=== PATIENT | female | born 1975 | race Caucasian/White ===

== ENCOUNTER 2023-03-04 10:55 | Day surgery (SDC) | payer OTHER, BC, SELFPAY ==
[2023-03-04] VITALS (8 sets, daily range): BP systolic 98–110; BP diastolic 62–82; PULSE 60–73; RESP 16; TEMP 36.3–36.7; O2SAT 97–100; BMI 23.1
[2023-03-04] MEDS: SODIUM CHLORIDE 0.9 % (FLUSH) 10 ML SYRINGE IVF (11:20)
[2023-03-04] MEDS: LACTATED RINGERS 1000 ML 1,000 ML 100 ML IV (11:20)
[2023-03-04] MEDS: fentaNYL 100 MCG/2 ML inj IVP (11:44)
[2023-03-04] MEDS: MIDAZOLAM HCL 1 MG/ML inj IVP (11:44)
--- NOTE | 2023-03-04 11:44 | SUR.PREOP ---
TIME?OUT:?1143 PT/RN/MDA?VERIFICATION?OF?SURGICAL?SITE,?PROCEDURE,?AND?CONSENT OBTAINED?PRIOR?TO?INVASIVE?PROCEDURE.
[2023-03-04] MEDS: CEFAZOLIN 2 GM INJ IVP (12:10)
--- NOTE | 2023-03-04 12:15 | CRLHL7_ITS ---
For Patients: As a result of the Cures Act, medical imaging exams and procedure reports are released immediately into your electronic medical record. You may view this report before your referring provider. If you have questions, please contact your health care provider. Indication: Right MPJ Fusion, Hammertoe Correction, Tailor`s bunion Technique: Five fluoroscopic images of the right forefoot. Fluoroscopic time 19.1 seconds. IMPRESSION: Fluoroscopic guidance for fusion across the 1st MTP joint, distal 5th metatarsal osteotomy and hammertoe correction of the 2nd and 3rd toes. Dictated by Shiv Walker MD @ 03/04/2023 2:44:05 PM (Electronically Signed)
--- NOTE | 2023-03-04 12:26 | W.ANESCHARGE ---
Anesthesia Charges Start Date/Time Anesthesia Start Date: 03/04/23 Anesthesia Start Time: 12:00 Stop Date/Time Anesthesia Stop Date: 03/04/23 Anesthesia Stop Time: 14:49
--- NOTE | 2023-03-04 12:26 | W.PM.NB ---
Nerve Block Nerve Block Time Seen by Provider: 11:48 Date Seen: 03/04/23 Type of block requested by surgeon for post-operative analgesia: popliteal Side: right Time out performed: Yes Verification of patient name: Yes Verification of date of : Yes Site marking: site marked Name of person performing procedure: Jose A Continuous monitoring Was continuous monitoring of O2 sat, B/P, color television console monitor, recorded every 15 minutes?: Yes Procedure Checklist: sterile prep, needles and gloves Ultrasound guided. Images saved: Yes Medications given in 5ml increments after negative aspiration: Ropivicaine %: 0.5 mL: 20 Needle gauge: 22 Patient tolerated procedure well: Yes Additional comments: Needle noted adjacent to nerve Block Charges Block Charge (with Pro Fee): Sciatic Nerve Use of Ultrasound Machine for Block: Yes- US Guidance/pain block
--- NOTE | 2023-03-04 12:27 | W.PM.NB ---
Nerve Block Nerve Block Time Seen by Provider: 11:48 Date Seen: 03/04/23 Type of block requested by surgeon for post-operative analgesia: adductor canal Side: right Time out performed: Yes Verification of patient name: Yes Verification of date of : Yes Site marking: site marked Name of person performing procedure: Jose A Continuous monitoring Was continuous monitoring of O2 sat, B/P, monitor and storage bin tender, recorded every 15 minutes?: Yes Procedure Checklist: sterile prep, needles and gloves Ultrasound guided. Images saved: Yes Medications given in 5ml increments after negative aspiration: Ropivicaine %: 0.5 mL: 20 Needle gauge: 20 Decadron (mg): 10 Precedex (mcg): 25 Patient tolerated procedure well: Yes Additional comments: Needle noted adjacent to nerve Block Charges Block Charge (with Pro Fee): Femoral Nerve Use of Ultrasound Machine for Block: Yes- US Guidance/pain block
--- NOTE | 2023-03-04 14:49 | W.ANESCHARGE ---
Anesthesia Charges Start Date/Time Anesthesia Start Date: 03/04/23 Anesthesia Start Time: 12:00 Stop Date/Time Anesthesia Stop Date: 03/04/23 Anesthesia Stop Time: 14:49
--- NOTE | 2023-03-04 14:52 | P.PCN_ITS ---
Procedure Note Date Seen: 03/04/23 Date of procedure: 03/04/23 Will [facility] bill your pro fee for this procedure?: No Procedure Description: Operative note Staff surgeon: Enoc Artis DPM Preoperative diagnosis: 1. Hallux rigidus right 2. Tailor's bunion right 3. Hammertoe 2nd digit 4. Hammertoe 3rd digit 5. Hammertoe 4th digit 6. Hammertoe 5th digit Postoperative diagnosis: 1. Hallux rigidus right 2. Tailor's bunion right 3. Hammertoe 2nd digit 4. Hammertoe 3rd digit 5. Hammertoe 4th digit 6. Hammertoe 5th digit Procedure: 1. First MPJ fusion right 2. Tailor's bunion correction by osteotomy right 3. Hammertoe repair 2nd digit right 4. Hammertoe repair 3rd digit right 5. Flexor tenotomy 4th digit right 6. Flexor tenotomy 5th digit Anesthesia: Mac with popliteal and adductor block Hemostasis: Ankle tourniquet 250 mm Hg Estimated blood loss: 10 mL Materials: Arthrex max Force 1st MPJ fusion plate x1, 3.0 locking screws x5 and 3.0 nonlocking screw x1, 2.4 mm cannulated screws x2, 0.054 smooth K-wires x2. Complications: None apparent Indication for surgery: Patient seen in clinic for ongoing pain. She has elected to have surgical correction. I reviewed procedure, recovery, expecta tions and potential complications. These include but not limited to: Poor wound healing, infection, under correction, over correction, nonunion, delayed union malunion, potential need for future surgery, deep venous thrombosis, pulmonary embolism, possible . She understands risks written consent was obtained. Procedure: Patient from the operating room placed supine position on operating table the time she was placed under MAC anesthesia. She was prepped and draped in sterile fashion. Standard time-out protocol followed. She had a preoperative popliteal adductor block by Anesthesia. Right foot was exsanguinated the tourniquet inflated. Dorsal linear incision was made over the 1st metatarsophalangeal joint. Incision was carried down through skin and subcutaneous tissues. Linear capsule incision was made the capsular tissue reflected away from the head of the 1st metatarsal in the proximal phalangeal base. Cartilage was completely eroded from both metatarsal head and the proximal phalangeal base. Guide pin was placed in 1st metatarsal head and a 20 mm Reamer was used to remove the remaining cartilage and subchondral bone. Guide pin was removed and placed in the base of proximal phalanx the corresponding 20 mm Reamer was used to remove remaining cartilage and subchondral bone. Wound was irrigated normal sterile saline. The opposing fusion surfaces were fenestrated with a K-wire. There was a small defect in the head of the metatarsal were small cystic area was found. This area was packed with demineralized bone matrix. Simulating weight-bearing the fusion was positioned optimally. Was temporarily fixated with a K-wire. C-arm confirmed excellent position. Guide pin was placed from distal medial to proximal lateral. 3.0 cannulated headless screw was then placed using standard technique with excellent compression noted across the fusion site. Additional bone graft DBM was placed across the fusion site. Six hole fusion plate was applied dorsa lly and anchored with three 3.0 mm cortical locking screws distally and two 3.0 mm cortical locking screws proximally. Additional 3.0 mm nonlocking screws placed proximal. First metatarsal head was remodeled using a rotary bur on its medial aspect. Wound was thoroughly irrigated normal sterile saline. C-arm images confirmed excellent position. Joint capsules closed with 3-0 Vicryl. Subcutaneous tissues reapproximated 4-0 Monocryl and skin closed with 4-0 Prolene. Linear incisions made over the dorsal lateral aspect of the 5th metatarsal head the incision was carried down through skin subcutaneous tissues. A linear capsule incision was made and the capsule reflected away from the metatarsal head. Sagittal saw was used to resect the lateral aspect and prominence of the 5th metatarsal head. A long plantar arm osteotomy was created. The capital fragment was transposed medially and then fixated with two 2.4 mm cannulated screws. First metatarsal head was remodeled with a rotary bur and sagittal saw. C-arm images confirmed excellent correction. Wound was thoroughly irrigated normal sterile saline. Capsular tissue repaired with 4-0 Vicryl. Subcutaneous tissues reapproximated 4-0 Monocryl and skin closed with 4-0 Prolene. Linear incision made over 2nd toe PIPJ down through skin and subcutaneous tissue. Blunt dissection mediolateral aspect of the extensor tendon and ca psule. Transverse capsular incision was made at the PIPJ. Medial and lateral collateral ligaments were released. An oscillating saw was used to resect the head of the proximal phalanx and the base of the middle phalanx. Wound was irrigated with normal sterile saline. 0.045 smooth K-wire was introduced into the base of the middle phalanx driven out through the tip of the toe. Fusion site was then held tightly together and the K-wire was driven across the fusion site retrogradely into the proximal phalanx. C-arm confirmed position. Extensor tendon was repaired with 4-0 Vicryl. Skin was closed with 4-0 Prolene. K-wire was bent cut and capped. Third toe found to be starting to hammer and would likely progress quickly if not corrected. Linear incision made over 3rd toe PIPJ down through skin and subcutaneous tissue. Blunt dissection mediolateral aspect of the extensor tendon and capsule. Transverse capsular incision was made at the PIPJ. Medial and lateral collateral ligaments were released. An oscillating saw was used to resect the head of the proximal phalanx and the base of the middle phalanx. Wound was irrigated with normal sterile saline. 0.045 smooth K-wire was i ntroduced into the base of the middle phalanx driven out through the tip of the toe. Fusion site was then held tightly together and the K-wire was driven across the fusion site retrogradely into the proximal phalanx. C-arm confirmed position. Extensor tendon was repaired with 4-0 Vicryl. Skin was closed with 4-0 Prolene. K-wire was bent cut and capped. Stab incision made with a [address] [place] blade to the plantar aspect of the 4th toe just distal to the PIPJ and the long flexor tendon transected. Toe position improved greatly. Fifth toe was value a and had an equinovarus rotation underlapping the 4th toe now that the other toes were straight. I elected to perform a flexor tenotomy on this toe as well. Stab incision made just distal to the PIPJ with a [address] [place] blade to the plantar aspect of the 5th toe just distal to the PIPJ the long flexor tendon transected. Toe position improved greatly. Tourniquet was released prior to closure of the incisions and no active bleeding noted. Capillary fill time returned to all digits. Sterile dressing was applied. She was placed into a well-padded cam boot. She was transferred from OR to PACU with vital signs stable vascular status intact to the right foot. She will be discharged per Anesthesia. She is given written and verbal postop instructions. She is given oxycodone for pain. She is weight-bearing as tolerated to the heel with crutch assistance. She will follow up in clinic in 2 weeks. She will start aspirin therapy tomorrow. Condition: stable Disposition: same day
== END 2023-03-04 15:48 | disposition home or self-care (01) ==
PROVIDERS: PCP Internal Medicine; Visit Provider Podiatrist
PROC: (CPT 28740; principal; 2023-03-04 12:15)
PROC: (CPT 28285; 2023-03-04 12:15)
DX: M20.21 Hallux rigidus, right foot (principal); M21.621 Bunionette of right foot; M20.41 Other hammer toe(s) (acquired), right foot
CPT/HCPCS: 28750; 28285 ×2; 28110; 28010 ×2; 01480; 73620; 76942; A4580; C1713; J0690; J1100; J2250; J2405; J2704; J2795; J3010; J7120